=== PATIENT | male | born 1975 | race Caucasian/White ===

== ENCOUNTER 2019-12-27 22:25 | Emergency (ER) | payer OTHER ==
[~2019-12-27] VITALS: Ht 157.5 cm; Wt 65.8 kg
[~2019-12-27 22:25] MED LIST: ASMANEX0.24 G1; PRILOSEC20 MG; SINGULAIR10 MG; SPIRIVA; TRAMADOL HCL-AP1 TAB PO; XOPENEX0.63 MG/3; ZANTAC300 MG PO; ZOFRAN4 MG PO
[2019-12-27] MEDS ORDERED: ATORVASTATIN CA40 MG (22:33)
[2019-12-27] MEDS ORDERED: PRILOSEC OTC20 MG (22:34)
[2019-12-27] MEDS ORDERED: METFORMIN HCL1000 M2 (22:34)
== END 2019-12-27 23:58 | disposition home or self-care (01) ==
LOC: ER 22:25
DX: R00.0 Tachycardia, unspecified (principal); F41.1 Generalized anxiety disorder

== ENCOUNTER 2020-08-13 14:50 | Inpatient (IN) | payer OTHER ==
[~2020-08-13] VITALS: Ht 167.6 cm; Wt 68.0 kg
[~2020-08-13 14:50] MED LIST changes: +ATORVASTATIN CA40 MG; +METFORMIN HCL1000 M2; +PRILOSEC OTC20 MG
[2020-08-14] MEDS ORDERED: FENOFIBRATE160 MG (08:04)
[2020-08-14] MEDS ORDERED: LOSARTAN-HCTZ1 EACH (08:05)
[2020-08-14] MEDS ORDERED: RIZATRIPTAN10 MG (08:05)
[2020-08-14] MEDS ORDERED: ATORVASTATIN CA10 MG (08:05)
[2020-08-15] MEDS ORDERED: KETO10TA2 PO (16:35)
== END 2020-08-15 19:13 | disposition home or self-care (01) | DRG 348 ==
LOC: ER 14:50 → O/R 21:11 → SEC-K 21:11 → O/R 08-14 11:03 → SURG 08-14 15:21
PROVIDERS: ADMIT Surgery; ATTEND Surgery
PROC: 06BY0ZC Excision of Hemorrhoidal Plexus, Open Approach (ICD-10-PCS; principal; 2020-08-14 08:45)
DX: K64.3 Fourth degree hemorrhoids (principal); K62.5 Hemorrhage of anus and rectum; K64.5 Perianal venous thrombosis; E11.9 Type 2 diabetes mellitus without complications; I10 Essential (primary) hypertension

== ENCOUNTER 2020-12-31 07:08 | Day surgery (SDC) | payer OTHER ==
[~2020-12-31 07:08] MED LIST changes: +ATORVASTATIN CA10 MG; +FENOFIBRATE160 MG; +KETO10TA2 PO; +LOSARTAN-HCTZ1 EACH; +RIZATRIPTAN10 MG
== END 2020-12-31 12:15 | disposition home or self-care (01) ==
LOC: AMB-ENDOS 07:08
PROVIDERS: ATTEND Surgery
DX: D12.5 Benign neoplasm of sigmoid colon (principal); D13.1 Benign neoplasm of stomach; D13.2 Benign neoplasm of duodenum; K64.8 Other hemorrhoids